=== PATIENT | male | born 1995 | race Caucasian/White ===

== ENCOUNTER 2018-12-06 08:19 | Emergency (ER) | payer OTHER ==
[2018-12-06 08:33] VITALS: BP 99/60; PULSE 68; TEMP 98.4
[2018-12-06 09:51] LABS: BASO % 0.6 % (0-2.0); EOS % 1.1 % (0-4.5); HEMATOCRIT 44.5 % (35.4-49); HEMOGLOBIN 15.4 GM/dL (11.7-16.9); LYMPH % 13.6 % (8-40); MCH 32.4 pg (25.7-33.7); MCHC 34.7 g/dl (32.0-35.9); MEAN CELL VOLUME 93.4 fl (80-96); MEAN PLT VOLUME 9.1 fl (7.5-11.1); MONO % 10.8 % (3.8-10.2); NEUT % 73.9 % (42.8-82.8); PLATELET COUNT 257 K/MM3 (134-434); RBC 4.76 M/mm3 (4.00-5.60); RDW 13.3 % (11.9-15.9); WHITE BLOOD COUNT 11.1 K/mm3 (4.0-10.0)
[2018-12-06 10:05] LABS: URINE APPEARANCE CLEAR; URINE BILIRUBIN NEGATIVE (<2.0 mg/dL); URINE COLOR STRAW; URINE GLUCOSE (UA) NEGATIVE (NEGATIVE); URINE KETONE NEGATIVE (NEGATIVE); URINE LEUK ESTERASE 1+ (NEGATIVE); URINE NITRITE NEGATIVE (NEGATIVE); URINE PROTEIN NEGATIVE (NEGATIVE); URINE UROBILINOGEN NEGATIVE mg/dL (0.2-1.0)
[2018-12-06 10:12] LABS: EPI CELLS RARE /HPF (FEW); URINE MUCUS RARE
--- NOTE | 2018-12-06 10:12 | PDOC ---
History of Present Illness - General Chief Complaint: Pain, Acute Stated Complaint: ABDOMINAL PAIN Time Seen by Provider: 12/06/18 09:10 History Source: Patient Exam Limitations: No Limitations - History of Present Illness Travel History: No Initial Comments: 12/06/18 10:03 23 y/o male presents to the ED complaints of lower abdominal cramping which began this morning followed by 2 episodes of diarrhea last one having blood- tinged stool. Patient denies fever, chills recent travel or recent illness. Patient denies GI history Timing/Duration: reports: intermittent Quality: reports: mild, cramping Abdominal Pain Onset Location: reports: epigastric, periumbilical Pain Radiation: reports: no radiation Activities at Onset: reports: none Aggravating Factors: improves with: None Alleviating Factors: improves with: None Past History - Travel Traveled outside of the country in the last 30 days: No Close contact w/someone who was outside of country & ill: No - Past Medical History Allergies/Adverse Reactions: Allergies Allergy/AdvReac Type Severity Reaction Status Date / Time peanut Allergy Verified 12/06/18 08:28 COD FISH Allergy Intermediate Rash Uncoded 12/06/18 08:28 PEANUTS Allergy Uncoded 12/06/18 08:28 Home Medications: Ambulatory Orders NK [No Known Home Medication] 12/06/18 COPD: No Disorders: Yes (KIDNEY BX) HTN: Yes (stopped meds on own) - Immunization History Immunization Up to Date: Yes - Suicide/Smoking/Psychosocial Hx Smoking History: Never smoked Have you smoked in the past 12 months: No Hx Alcohol Use: No Drug/Substance Use Hx: No Substance Use Type: None Patient Lives Alone: No Lives with/in: parents Abd/GI Specific PMHX - Complaint Specific PMHX Colitis: No Diverticulitis: No Review of Systems - Review of Systems Able to Perform ROS?: No Is the patient limited [place]an proficient: No Constitutional: No: Symptoms Reported HEENTM: No: Symptoms Reported Respiratory: No: Symptoms reported Cardiac (ROS): No: Symptoms Reported ABD/GI: Yes: Blood Streaked Bowels, Abdominal cramping : No: Symptoms Reported Musculoskeletal: No: Symptoms Reported Integumentary: No: Symptoms Reported Neurological: No: Symptoms reported Endocrine: No: Symptoms Reported Hematologic/Lymphatic: No: Symptoms Reported *Physical Exam - Vital Signs Last Vital Signs Temp Pulse Resp BP Pulse Ox 98.4 F 68 19 99/60 99 12/06/18 08:29 12/06/18 08:29 12/06/18 08:29 12/06/18 08:29 12/06/18 08:29 - Physical Exam General Appearance: Yes: Nourished, Appropriately Dressed. No: Apparent Distress HEENT: negative: Pale Conjunctivae Respiratory/Chest: positive: Lungs Clear, Normal Breath Sounds. negative: Respiratory Distress, Accessory Muscle Use Cardiovascular: positive: Regular Rhythm, Regular Rate. negative: Murmur Gastrointestinal/Abdominal: positive: Soft, Tenderness (mild left lower quad) Musculoskeletal: negative: CVA Tenderness Extremity: positive: Normal Capillary Refill Integumentary: positive: Normal Color, Warm, Moist Neurologic: positive: Motor Strength 5/5 (ambulatory) Moderate Sedation - Procedure Monitoring Vital Signs: Procedure Monitoring Vital Signs Temperature 98.4 F 12/06/18 08:29 Pulse Rate 68 12/06/18 08:29 Respiratory Rate 19 12/06/18 08:29 Blood Pressure 99/60 12/06/18 08:29 O2 Sat by Pulse Oximetry (%) 99 12/06/18 08:29 ED Treatment Course - LABORATORY CBC & Chemistry Diagram: 12/06/18 09:42 12/06/18 09:42 - ADDITIONAL ORDERS Additional order review: 12/06/18 09:42 RBC 4.76 MCV 93.4 MCHC 34.7 RDW 13.3 MPV 9.1 Neutrophils % 73.9 Lymphocytes % 13.6 D Monocytes % 10.8 H Eosinophils % 1.1 Basophils % 0.6 - RADIOLOGY Radiology Studies Ordered: Category Date Time Status ABDOMEN & PELVIS CT W/O CONTR [CT] Stat CT Scan 12/06/18 09:23 Ordered Medical Decision Making - Medical Decision Making 12/06/18 10:06 chief complaint: Lower abdominal cramping accompanied with bloody diarrhea on second bowel movement. No other complaints no GI history no travel. Exam: Left lower quadrant tenderness on exam Plan: Labs, urine and abdominal CT 12/06/18 10:19 Laboratory Tests 12/06/18 12/06/18 09:42 09:59 WBC 11.1 H Hgb 15.4 Hct 44.5 Absolute Neuts (auto) 8.2 H Neutrophils % 73.9 Lymphocytes % 13.6 D Monocytes % 10.8 H Ur Leukocyte Esterase 1+ H Urine WBC (Auto) 8 Urine RBC (Auto) None 12/06/18 14:07 CAT scan shows moderate amount of fecal residual in the entire colon. Mid and distal as well as the sigmoid colon. There is questionable thickening of the rectosigmoid junction wall. There is no free air free fluid or gross enlarged lymph nodes identified. CT suggests constipation. Patient states he does not eat vegetables and discussed proper diet with him. *DC/Admit/Observation/Transfer Diagnosis at time of Disposition: Constipation - Discharge Dispostion Disposition: HOME Condition at time of disposition: Improved - Referrals - Patient Instructions Printed Discharge Instructions: DI for Constipation, Increased Dietary Fiber May Improve Constipation Conditions With Pelvic Pritesh Additional Instructions: Read Over information in regards to constipation and increasing her fiber intake. Drink plenty of fluids and add more fruits and vegetables in diet. - Post Discharge Activity
[2018-12-06 10:20] LABS: ALBUMIN 4.3 g/dl (3.4-5.0); ALK PHOS 77 U/L (45-117); ANION GAP 6 MMOL/L (8-16); BILIRUBIN,TOTAL 0.7 mg/dL (0.2-1); BLOOD UREA NITROGEN 21 mg/dL (7-18); CHLORIDE 106 mmol/L (98-107); CO2 26 mmol/L (21-32); CREATININE 0.9 mg/dL (0.55-1.3); GLUCOSE,RANDOM 84 mg/dL (74-106); POTASSIUM 4.1 mmol/L (3.5-5.1); SGOT/AST 15 U/L (15-37); SGPT/ALT 21 U/L (13-61); SODIUM 138 mmol/L (136-145); TOT PROT 7.5 g/dl (6.4-8.2)
== END 2018-12-06 14:27 | disposition home or self-care (01) ==
LOC: JER 08:19
DX: K59.00 Constipation, unspecified (principal); I10 Essential (primary) hypertension; Z91.14 Patient's other noncompliance with medication regimen
CPT/HCPCS: 36415; 74176-TC; 80053; 81003; 81015; 85025; 87086; 99282-25

== ENCOUNTER 2021-12-28 11:19 | Emergency (ER) | payer OTHER ==
[2021-12-28 11:42] VITALS: BP 121/62; PULSE 68; TEMP 98
[2021-12-28] MEDS ORDERED: DEXAMETHASONE SOD PHOSPHATE 10 MG/1 ML VIAL IM ONE (12:25)
== END 2021-12-28 14:15 | disposition home or self-care (01) ==
LOC: JER 11:19
PROC: 3E023GC Introduction of Other Therapeutic Substance into Muscle, Percutaneous Approach (ICD-10-PCS; principal; 2021-12-28)
DX: J36 Peritonsillar abscess (principal)
CPT/HCPCS: 99284-25; J1100

== ENCOUNTER 2023-05-24 19:02 | Emergency (ER) | payer OTHER ==
[2023-05-24 19:09] VITALS: RESP 18; TEMP 98; BMI 20.7
[2023-05-24] MEDS ORDERED: ACETAMINOPHEN 1000 MG/100 ML BAG IVPB ONE (19:11)
[2023-05-24] MEDS ORDERED: SODIUM CHLORIDE 0.9% 500 ML INFUS.BAG IV ONE (19:11)
[2023-05-24] MEDS ORDERED: ACETAMINOPHEN INJECTION 100 ML IVPB ONE (19:24)
[2023-05-24 19:48] LABS: BASO % 1.2 % (0-2.0); EOS % 2.4 % (0-4.5); HEMATOCRIT 41.7 % (35.4-49); HEMOGLOBIN 13.7 GM/dL (11.7-16.9); LYMPH % 19.4 % (8-40); MCH 30.3 pg (25.7-33.7); MCHC 32.8 g/dl (32.0-35.9); MEAN CELL VOLUME 92.2 fl (80-96); MEAN PLT VOLUME 8.1 fl (7.5-11.1); MONO % 14.1 % (3.8-10.2); NEUT % 62.9 % (42.8-82.8); PLATELET COUNT 323 10^3/uL (134-434); RBC 4.52 M/mm3 (4.00-5.60); RDW 14.1 % (11.9-15.9); WHITE BLOOD COUNT 7.8 K/mm3 (4.0-10.0)
[2023-05-24 20:28] LABS: POTASSIUM 4.2 mmol/L (3.5-5.1)
[2023-05-24 20:30] LABS: CALCIUM 8.9 mg/dL (8.5-10.1)
[2023-05-24 20:31] LABS: ALBUMIN 3.8 g/dl (3.4-5.0); BLOOD UREA NITROGEN 16.9 mg/dL (7-18)
[2023-05-24 20:34] LABS: CREATININE 1.1 mg/dL (0.55-1.3)
[2023-05-24 20:35] LABS: BILIRUBIN,TOTAL 0.2 mg/dL (0.2-1); TOT PROT 7.1 g/dl (6.4-8.2)
[2023-05-24] MEDS ORDERED: AMOX TR/POT CLAV 875MG/125MG TABLETS (FP) PO ONE (22:51)
[2023-05-24] MEDS ORDERED: AMOX TR/POT CLAV 875MG/125MG TABLETS (FP) ONE (23:40)
[2023-05-24 23:47] VITALS: BP 120/76; PULSE 60
== END 2023-05-24 23:47 | disposition home or self-care (01) ==
LOC: JER 19:02
PROC: 3E033NZ Introduction of Analgesics, Hypnotics, Sedatives into Peripheral Vein, Percutaneous Approach (ICD-10-PCS; principal; 2023-05-24)
DX: K51.019 Ulcerative (chronic) pancolitis with unspecified complications (principal)
CPT/HCPCS: 36415; 74177-TC; 76705-TC; 80053; 83690; 85025; 86850; 86900; 86901; 99285-25